=== PATIENT | female | born 1950 | race Caucasian/White ===

== ENCOUNTER → 2017-07-24 | Outpatient (CLI) | payer MEDICARE, OTHER ==
[~2017-07-24] MED LIST: Divigel0.5 MG VAG; ESTRADIOL1 MG PO
== END ==
LOC: LAB 15:13
DX: R31.9 Hematuria, unspecified (principal); R10.2 Pelvic and perineal pain
CPT/HCPCS: 87077; 87086; 87186

== ENCOUNTER → 2018-09-12 | Outpatient (CLI) | payer MEDICARE, OTHER | END | disposition home or self-care (01) | LOC: PLD 07:58 → LAB SHORT 07:58 | DX: D48.5 Neoplasm of uncertain behavior of skin (principal) | CPT/HCPCS: 88305 ==

== ENCOUNTER → 2019-03-16 | Outpatient (CLI) | payer MEDICARE, OTHER | END | disposition home or self-care (01) | LOC: PLD 14:46 → LAB SHORT 14:46 | DX: D48.5 Neoplasm of uncertain behavior of skin (principal) | CPT/HCPCS: 88305 ==

== ENCOUNTER → 2021-01-05 | Outpatient (CLI) | payer MEDICARE, OTHER | END | disposition home or self-care (01) | LOC: LAB SHORT 10:30 → LAB 10:30 | DX: N30.01 Acute cystitis with hematuria (principal) | CPT/HCPCS: 87086 ==

== ENCOUNTER → 2022-09-07 | Outpatient (CLI) | payer MEDICARE, OTHER | END | disposition home or self-care (01) | LOC: PLD 11:21 → LAB SHORT 11:21 | DX: L57.0 Actinic keratosis (principal) | CPT/HCPCS: 88305 ==

== ENCOUNTER → 2023-01-21 | Outpatient (CLI) | payer MEDICARE, OTHER | END | disposition home or self-care (01) | LOC: LAB SHORT 15:38 → LAB 15:38 | DX: R35.0 Frequency of micturition (principal) | CPT/HCPCS: 87077; 87086; 87186 ==

== ENCOUNTER → 2023-02-04 | Outpatient (CLI) | payer MEDICARE, OTHER | LOC: LAB 16:02 → LAB SHORT 16:02 | DX: R35.0 Frequency of micturition (principal) | CPT/HCPCS: 87086 ==

== ENCOUNTER → 2024-08-29 | Outpatient (CLI) | payer MEDICARE, OTHER ==
[2024-08-29 17:27] LABS: BASOPHILS ABSOLUTE AUTO 0.25 K/mm3 (0.00-0.23); BASOPHILS PERCENT AUTO 3 % (0-2); EOSINOPHILS ABSOLUTE AUTO 0.17 K/mm3 (0.00-0.68); EOSINOPHILS PERCENT AUTO 2 % (0-6); Hematocrit 46.8 % (33.0-51.0); Hemoglobin 15.7 g/dL (11.5-16.0); IMMATURE GRAN ABSOLUTE AUTO 0.04 K/mm3 (0.00-0.10); IMMATURE GRAN PERCENT AUTO 0 % (0-1); LYMPHOCYTES ABSOLUTE AUTO 1.24 K/mm3 (0.84-5.20); LYMPHOCYTES PERCENT AUTO 13 % (21-46); MONOCYTES ABSOLUTE AUTO 0.78 K/mm3 (0.16-1.47); MONOCYTES PERCENT AUTO 8 % (4-13); Mean Corpuscular HGB Conc 33.5 g/dL (31.5-36.5); Mean Corpuscular Volume 105 fL (80-100); Mean Platelet Volume 9.4 fL (9.1-12.4); NEUTROPHILS ABSOLUTE AUTO 7.14 K/mm3 (1.96-9.15); NEUTROPHILS PERCENT AUTO 74 % (41-73); Platelet Count 608 K/mm3 (150-400); RDW Coefficient Variation 13.4 % (11.7-14.2); Red Blood Cell Count 4.48 M/mm3 (3.80-5.20); White Blood Cell Count 9.62 K/mm3 (4.00-11.30)
[2024-08-29 19:10] LABS: Alanine Aminotransfer (ALT/SGP 26 U/L (12-78); Albumin/Globulin Ratio 1.1 (0.8-1.8); Alk Phos 58 U/L (50-136); Anion Gap 7 mmol/L (3-11); Aspartate Aminotrans (AST/SGOT 16 U/L (12-37); Bilirubin, Total 1.3 mg/dL (0.1-1.0); Blood Urea Nitrogen 14 mg/dL (8-24); Bun/Creatinine Ratio 15.7 (12.0-20.0); CHOL/HDL RATIO 2.5; CO2, Blood 30 mmol/L (21-32); Calcium, Blood 9.6 mg/dL (8.5-10.1); Chloride, Blood 102 mmol/L (98-108); Cholesterol 164 mg/dL (50-200); Creatinine, Blood 0.89 mg/dL (0.40-1.00); Globulin, Blood 3.6 g/dL (2.2-4.0); Glomerular Filtration Rate 67 (60-); Glucose, Blood 97 mg/dL (70-99); HDL Cholesterol 65 mg/dL (>39); Low Density Lipoprotein Chol 68 mg/dL (0-110); Potassium, Blood 4.4 mmol/L (3.5-5.5); Sodium, Blood 135 mmol/L (136-145); Total Protein, Blood 7.6 g/dL (6.4-8.2); Triglycerides 157 mg/dL (30-160); Very Low Density Lipoprot Chol 31 mg/dL (6-32)
== END ==
LOC: LAB 15:56 → LAB SHORT 15:56
PROVIDERS: Family Medicine
DX: E78.5 Hyperlipidemia, unspecified (principal)
CPT/HCPCS: 80053; 80061; 85025

== ENCOUNTER → 2025-04-25 | Outpatient (CLI) | payer MEDICARE, OTHER | LOC: LAB SHORT 13:45 → LAB 13:45 | DX: R31.0 Gross hematuria (principal); R39.9 Unspecified symptoms and signs involving the genitourinary system | CPT/HCPCS: 87086 ==